=== PATIENT | female | born 1990 | race Caucasian/White ===

== ENCOUNTER 2017-10-10 13:36 | Day surgery (SDC) | payer BC, OTHER ==
[2017-10-04 18:16] VITALS: BMI 25.6
[~2017-10-10 13:36] MED LIST: ACETAMINOPHEN IV (For NPO) 1,000 MG in EMPTY BAG 1 BAG IVPB ONE; DEXAMETHASONE SOD PHOSPHATE 10 MG/ML 1 ML VIAL IV ONE; HEPARIN SODIUM,PORCINE 5,000 UNIT/ML 1 ML VIAL SQ ONE; LACTATED RINGERS 1,000 ML IV SCH; MIDAZOLAM 2 MG/2 ML VIAL IV PRN; ONDANSETRON 4 MG/2 ML VIAL IVP ONE; SCOPOLAMINE 1.5MG/72HR PATCH TRANSDERM ONE; ceFAZolin IN SWFI 2 GM/20 ML SYRINGE IVP ONE; fentaNYL (PF) 50 MCG/ML 2 ML AMP IV PRN
[2017-10-10] MEDS ORDERED: ACETAMINOPHEN IV (For NPO) 1,000 MG in EMPTY BAG 1 BAG IVPB ONE (15:51)
--- NOTE | 2017-10-10 15:51 | P.GSHP ---
History of Present Illness H&P Date: 10/10/17 CHIEF COMPLAINT: Inguinal hernia, right HISTORY OF PRESENT ILLNESS: The patient is a 27-year-old female who presents with a history of swelling and pain along the right groin. She's noted increased swelling including pain of the area. Now she presents for repair of her inguinal hernia. PAST MEDICAL HISTORY: Please see list. PAST SURGICAL HISTORY: Please see list. MEDICATIONS: Please see list. ALLERGIES: Please see list. SOCIAL HISTORY: No illicit drug use FAMILY HISTORY: No reports of Crohn disease or ulcerative colitis. REVIEW OF ORGAN SYSTEMS: CONSTITUTIONAL: No reports of fevers or chills. No reports of weight loss despite prior attempts. GI: Denies any blood in stools or constipation. PHYSICAL EXAM: VITAL SIGNS: Stable GENERAL: Well-developed pleasant female in no acute distress. HEENT: No scleral icterus. Extraocular movements grossly intact. Moist buccal mucosa. NECK: Supple without lymphadenopathy. CHEST: Unlabored respirations. Equal bilateral excursions. CARDIOVASCULAR: Regular rate and rhythm. Distal 2+ pulses. ABDOMEN: Soft, nondistended. No peritoneal signs. Palpable defect of the right groin. MUSCULOSKELETAL: No clubbing, cyanosis, or edema. ASSESSMENT: 1. Inguinal hernia, right initial and symptomatic. PLAN: 1. Recommend proceeding with robotic right inguinal repair with mesh with possible bilateral approach. 2. Benefits and risks of surgical intervention was discussed including possibility of open technique. 3. DVT prophylaxis. 4. Antibiotic prophylaxis. Past Medical History Past Medical History: Asthma, Blood Disorder Additional Past Medical History / Comment(s): ALLERGIC ASTHMA. ANEMIA. HYPOGLYCEMIA EPISODES. RT ING HERNIA CURRENTLY. History of Any Multi-Drug Resistant Organisms: None Reported Additional Past Surgical History / Comment(s): Oral surgery, WISDOM TEETH. Past Anesthesia/Blood Transfusion Reactions: No Reported Reaction Smoking Status: Never smoker - Past Family History Mother Family Medical History: No Reported History Medications and Allergies Home Medications Medication Instructions Recorded Confirmed Type Albuterol Sulfate [Proair Hfa] 1 - 2 puff INHALATION Q6HR PRN 10/04/17 10/04/17 History Cetirizine HCl [Zyrtec] 10 mg PO DAILY 10/04/17 10/04/17 History Ibuprofen [Motrin Ib] 400 mg PO Q6H PRN 10/04/17 10/04/17 History Iron 27 mg PO DAILY 10/04/17 10/04/17 History Melatonin 5 mg PO HS 10/04/17 10/04/17 History Multivitamins, Thera [Multivitamin 1 tab PO DAILY 10/04/17 10/04/17 History (formulary)] Norgestimate-Ethinyl Estradiol 1 each PO HS 10/04/17 10/04/17 History [Tri-Sprintec Tablet] Vitamin B Complex/Folic Acid 0.4 mg PO DAILY 10/04/17 10/04/17 History [B-Complex Tablet] diphenhydrAMINE [Benadryl] 25 mg PO BID PRN 10/04/17 10/04/17 History Allergies Allergy/AdvReac Type Severity Reaction Status Date / Time hydrocodone [From Vicodin] AdvReac Nausea Verified 10/04/17 17:47
[2017-10-10 16:23] VITALS: RESP 16
[2017-10-10] MEDS ORDERED: LIDOCAINE 1% 20 ML VIAL (10MG/ML) FOR IV START INTRADERMA ONE (16:44)
[2017-10-10 17:04] LABS: Glucose,Whole Blood 72 mg/dL (75-99)
[2017-10-10] MEDS ORDERED: SUCCINYLCHOLINE CHLORIDE 100 MG/5 ML SYR IV ONE (19:00)
[2017-10-10] MEDS ORDERED: MIDAZOLAM 2 MG/2 ML VIAL ONE (19:00)
[2017-10-10] MEDS ORDERED: NEOSTIGMINE 1 MG/ML 10 ML VIAL ONE (19:00)
[2017-10-10] MEDS ORDERED: VECURONIUM 10 MG VIAL IV ONE (19:00)
[2017-10-10] MEDS ORDERED: KETOROLAC 30 MG/ML 1 ML VIAL ONE (19:00)
[2017-10-10] MEDS ORDERED: LIDOCAINE 1% INJ 10MG/ML (20 ML MDV) ONE (19:00)
[2017-10-10] MEDS ORDERED: GLYCOPYRROLATE 0.2 MG/ML 2 ML VIAL ONE (19:00)
[2017-10-10] MEDS ORDERED: PROPOFOL 10 MG/ML 20 ML VIAL IV ONE (19:00)
[2017-10-10] MEDS ORDERED: HYDROmorphone (PF) 1 MG/ML ONE (19:00)
[2017-10-10] MEDS ORDERED: fentaNYL (PF) 50 MCG/ML 2 ML AMP ONE (19:00)
[2017-10-10] MEDS ORDERED: LIDOCAINE 1% INJ 10MG/ML (20 ML MDV) SQ ONE (19:18)
[2017-10-10] MEDS ORDERED: LACTATED RINGERS 1,000 ML IV ONE (20:11)
--- NOTE | 2017-10-10 20:40 | P.OP ---
Date of Procedure: 10/10/17 Description of Procedure: SURGEON: CINDY NORTON MD PREOPERATIVE DIAGNOSES: 1. Initial right inguinal hernia POSTOPERATIVE DIAGNOSES: 1. Initial right inguinal hernia, indirect, reducible OPERATION: 1. Robotic-assisted [employer] Xi laparoscopic right inguinal hernia repair with mesh, 11.[address] ANESTHESIA: General with local anesthetic ESTIMATED BLOOD LOSS: 5 mL. SPECIMENS REMOVED: Right inguinal sac and round ligament COMPLICATIONS: None. INDICATIONS: The patient is a 27-year-old female who presents with history of right groin pain. Now presents for definitive surgical intervention. Laparoscopic versus open and robotic approaches were discussed. Benefits and risks including bleeding, infection, injury to the vas deferens as well as sterility and chronic groin pain were reviewed. Placement of mesh was also described. Informed consent was obtained. DESCRIPTION: In the preoperative area, the patient was marked with indelible marker along the inguinal hernia. The patient was brought to the operating room and initially laid in supine position. The abdomen had been prepped and draped in standard sterile fashion. Ioban draping was also placed. Prior to incision, a timeout protocol was confirmed with surgical team regarding patient's name including procedures to be performed and location along the right groin. Initial positioning for the robotic assisted ports were selected whereby 20 cm superior to the target anatomy, 0 degree 5 mm laparoscopic trocar entry was performed at the left upper quadrant. The abdomen was insufflated to 15 mmHg which he had tolerated well. Diagnostic laparoscopy demonstrated a indirect inguinal hernia along the right groin. Next, along the epigastrium, 8 mm robot trocar was placed. An 8-mm robotic trocar was placed under direct visualization at the right upper quadrant. An 8 mm port was placed at the left upper quadrant. All trocars were positioned between 8 to 10-cm apart from each other. The [employer] Ever[employer] XI robot was primed, draped, prepared for docking along the left side of the patient. I then went to the PPS console. The dairy and food laboratory assistant was at bedside for exchange of the robot arms and equipment. No large hernia was identified along the left groin. The right inguinal hernia sac was evaginated whereby the peritoneum was scored using Endo scissors with cautery. Once completely reduced into the abdominal cavity, the peritoneal sac of the hernia was stripped. The round ligament and hernia sac was excised as distally into the right labia. The sac was resected and then passed off for further pathological analysis. The size of the hernia defect was 3 cm with intraoperative films obtained. The right ovary was unremarkable. The uterus was unremarkable. The appendix was without acute appendicitis. Using a 2-0 VLOC, the peritoneal defect of the right inguinal hernia site was closed using a running suture. The defect was found to be completely closed with complete reduction of the right inguinal hernia was confirmed. As an onlay, an 11.[address] mesh by [employer] was initially cut in half and entered into the abdominal cavity via the 8 mm trocar. The mesh was tacked to the pelvis using 2-0 VLOC 9-inch length sutures. A small abdominal wall hematoma was identified and bleeding was controlled. The robot was undocked from the patient's bedside. I then rescrubbed into the case. Insufflation was released from the abdominal cavity and all instruments were removed from the abdominal cavity. The rest of incisions were reapproximated using 4-0 Monocryl in a running subcuticular fashion. Local anesthetic was placed along the incision including for a right groin block. Incisions were cleansed using dilute hydrogen peroxide. Dermabond was applied to the skin. At the end of the procedure, the needle, sponge and instrument counts had been verified correct by the area intelligence technician. The patient had tolerated the procedure well and was taken to the postanesthesia care unit in stable condition. An abdominal binder was placed. Console time 42 minutes Plan - Discharge Summary New Discharge Prescriptions: New Ibuprofen [Motrin] 600 mg PO Q8HR PRN #30 tab PRN Reason: Pain No Action diphenhydrAMINE [Benadryl] 25 mg PO BID PRN PRN Reason: ALLERGY SX Albuterol Sulfate [Proair Hfa] 1 - 2 puff INHALATION Q6HR PRN PRN Reason: ALLERGIC ASTHMA Vitamin B Complex/Folic Acid [B-Complex Tablet] 0.4 mg PO DAILY Multivitamins, Thera [Multivitamin (formulary)] 1 tab PO DAILY Cetirizine HCl [Zyrtec] 10 mg PO DAILY Ibuprofen [Motrin Ib] 400 mg PO Q6H PRN PRN Reason: Pain Iron 27 mg PO DAILY Norgestimate-Ethinyl Estradiol [Tri-Sprintec Tablet] 1 each PO HS Melatonin 5 mg PO HS Discharge Medication List Albuterol Sulfate [Proair Hfa] 1 - 2 puff INHALATION Q6HR PRN 10/04/17 [History] Cetirizine HCl [Zyrtec] 10 mg PO DAILY 10/04/17 [History] Ibuprofen [Motrin Ib] 400 mg PO Q6H PRN 10/04/17 [History] Iron 27 mg PO DAILY 10/04/17 [History] Melatonin 5 mg PO HS 10/04/17 [History] Multivitamins, Thera [Multivitamin (formulary)] 1 tab PO DAILY 10/04/17 [History ] Norgestimate-Ethinyl Estradiol [Tri-Sprintec Tablet] 1 each PO HS 10/04/17 [ History] Vitamin B Complex/Folic Acid [B-Complex Tablet] 0.4 mg PO DAILY 10/04/17 [ History] diphenhydrAMINE [Benadryl] 25 mg PO BID PRN 10/04/17 [History] Ibuprofen [Motrin] 600 mg PO Q8HR PRN #30 tab 10/10/17 [Rx] Follow up Appointment(s)/Referral(s): Cindy Norton MD [STAFF PHYSICIAN] - 10/15/17 Patient Instructions/Handouts: Laparoscopic Herniorrhaphy (DC), Inguinal Hernia Repair (DC) Activity/Diet/Wound Care/Special Instructions: No lifting over 4 pounds in 2 weeks May shower. No baths or soaks. Discharge Disposition: HOME SELF-CARE
[2017-10-10 20:49] VITALS: TEMP 97.9
[2017-10-10] MEDS ORDERED: ONDANSETRON 4 MG/2 ML VIAL IVP ONE (21:35)
[2017-10-10 21:46] LABS: Glucose,Whole Blood 116 mg/dL (75-99)
[2017-10-10 22:34] VITALS: BP 102/68; PULSE 71
== END 2017-10-10 23:05 | disposition home or self-care (01) ==
LOC: OR 13:36
PROVIDERS: ATTEND Surgery Plastic and Reconstructive Surgery
DX: K40.90 Unilateral inguinal hernia, without obstruction or gangrene, not specified as recurrent (principal); D64.9 Anemia, unspecified; J45.909 Unspecified asthma, uncomplicated; Z79.3 Long term (current) use of hormonal contraceptives; Z79.899 Other long term (current) drug therapy; Z88.8 Allergy status to other drugs, medicaments and biological substances
CPT/HCPCS: 49505; S2900; 81025; 88302